=== PATIENT | male | born 1955 | race Hispanic/Latino ===

== ENCOUNTER 2023-08-19 16:16 | Inpatient (IN) | payer OTHER ==
[2023-08-19] MEDS ORDERED: CEFTRIAXONE 1000 MG/VIAL ONE (16:48)
[2023-08-19] MEDS ORDERED: NA CHLORIDE 0.9% 1,000 ML ONE ×2 (16:48→21:13)
[2023-08-19] MEDS ORDERED: ACETAMINOPHEN 325 MG TABLET ONE (16:48)
[2023-08-19] MEDS ORDERED: NA CHLORIDE 0.9% 500 ML ONE ×2 (16:49→18:52)
[2023-08-19] MEDS ORDERED: NA CHLORIDE 0.9% 50 ML ONE (16:49)
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
[2023-08-19 17:40] LABS: Protime INR 1.58
[2023-08-19] MEDS ORDERED: AMOX/K CLAV 875 MG TAB ONE (17:40)
[2023-08-19 17:42] LABS: Absolute Lymphocytes (CBC) 0.4 K/uL (0.7-4.9); Basophils % 0.4 % (0-1.3); Hematocrit 37.6 % (39.6-49.0); Lymphocytes % 5.1 % (15.3-44.8); MCV 89.6 fL (80-100); MPV 10.8 fL (7.6-11.3); Platelets 87 thou/uL (152-406)
[2023-08-19 17:58] LABS: Albumin 2.7 g/dL (3.4-5.0); Albumin/Globulin Ratio 0.6 (1.1-1.8); Anion Gap 13.8 mEq/L (5.0-15.0); Bilirubin Direct 1.6 mg/dL (0-0.2); Bilirubin Indirect, Calculated 1.7 mg/dL (0.2-0.8); Bilirubin Total 3.3 mg/dL (0.2-1.0); Globulin 4.5 g/dL (2.3-3.5); Magnesium 1.5 mg/dL (1.6-2.4); Potassium 3.8 mEq/L (3.5-5.1); Protein, Total 7.2 g/dL (6.4-8.2)
[2023-08-19 18:01] LABS: SARS-CoV-2 Antigen Rapid Res Negative (Negative)
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
[2023-08-19] MEDS ORDERED: MAGNESIUM SULFATE 1 gm IVPB 1 GM/100 ML BAG IV ONE (18:52)
[2023-08-19] MEDS ORDERED: LACTULOSE 20 GM/30 ML UCUP ONE (18:52)
[2023-08-19] MEDS ORDERED: ACETAMINOPHEN 500 MG TAB PO PRN (21:29)
[2023-08-19] MEDS ORDERED: ONDANSETRON 4 MG/2 ML VIAL IV PRN (21:29)
--- NOTE | 2023-08-19 21:29 | P.HP ---
Patient History Date of Service: 08/19/23 Allergies No Known Allergies Allergy (Unverified 08/19/23 20:11) Physical Examination - Studies Laboratory Data (last 24 hrs) 08/19/23 08/19/23 08/19/23 17:10 17:10 17:10 WBC 8.60 Hgb 13.4 L Hct 37.6 L Plt Count 87 L PT 17.1 H INR 1.58 Sodium 129 L Potassium 3.8 BUN 14 Creatinine 1.50 H Glucose 216 H Magnesium 1.5 L Total Bilirubin 3.3 H AST 53 H ALT 38 Alkaline Phosphatase 178 H Lipase 46 Microbiology Data (last 24 hrs): 08/19/23 17:15 Nasopharnyx Influenza Type A Antigen Screen - Final 08/19/23 17:15 Nasopharnyx Influenza Type B Antigen Screen - Final Assessment and Plan - Advance Directives Does patient have a Living Will: No Does patient have a Durable POA for Healthcare: No
[2023-08-19 21:34] LABS: Band Neutrophils 11 % (0-1); Blood Morphology Comment NOT SEEN (NOT SEEN); Platelet Estimate DECR
[2023-08-19] MEDS ORDERED: ACETAMINOPHEN 500 MG TAB ONE (22:00)
[2023-08-19] MEDS: NA CHLORIDE 0.9% 1,000 ML IV SCH (22:00)
[2023-08-19 22:08] LABS: Absolute Lymphocytes (CBC) 0.6 K/uL (0.7-4.9); Basophils % 0.4 % (0-1.3); Hematocrit 41.1 % (39.6-49.0); Lymphocytes % 9.9 % (15.3-44.8); MCV 91.1 fL (80-100); MPV 10.8 fL (7.6-11.3); Platelets 74 thou/uL (152-406); RBC Red Blood Cell Count 4.51 M/uL (4.33-5.43)
[2023-08-19] MEDS: ACETAMINOPHEN 500 MG TAB PO ONE (22:10)
[2023-08-19 22:16] LABS: Calcium Oxalate Crystals- Ur Few /HPF (None Seen); Specific Gravity 1.015 (1.005-1.030); Urine Bacteria None Seen /HPF (<20); Urine Bilirubin NEGATIVE (Negative); Urine Blood Negative (Negative); Urine Clarity Turbid (Clear); Urine Color Yellow (Yellow); Urine Glucose NEGATIVE (Negative); Urine Mucus Slight /HPF (None Seen); Urine Protein NEGATIVE (Negative); Urine RBC None Seen /HPF (None Seen); Urine Urobilinogen 1+ (Normal)
[2023-08-19 22:26] LABS: Albumin 2.7 g/dL (3.4-5.0); Albumin/Globulin Ratio 0.6 (1.1-1.8); Anion Gap 17.7 mEq/L (5.0-15.0); Bilirubin Total 3.2 mg/dL (0.2-1.0); Globulin 4.5 g/dL (2.3-3.5); Potassium 3.7 mEq/L (3.5-5.1); Protein, Total 7.2 g/dL (6.4-8.2)
[2023-08-19 22:45] VITALS: BMI 32.0
[2023-08-20] MEDS ORDERED: PIPER TAZO 3.375 GM in NA CHLORIDE 0.9% 100 ML IV SCH (01:00)
[2023-08-20 01:07] VITALS: O2SAT 98
[2023-08-20 01:40] VITALS: BP 132/45; TEMP 100.8
[2023-08-20] MEDS ORDERED: ACETAMINOPHEN 500 MG TAB PO PRN (04:00)
[2023-08-20] MEDS ORDERED: INSULIN REGULAR (HUMAN) 100 UNIT/ML SQ SCH (07:30)
[2023-08-20] MEDS ORDERED: ENOXAPARIN 40 MG/0.4 ML SQ SCH (09:00)
== END 2023-08-20 01:00 | disposition home or self-care (01) | DRG 864 ==
LOC: ER 16:16 → ERHOLD 21:29
PROVIDERS: ADMIT Internal Medicine Nephrology; ATTEND Internal Medicine
PROC: 0T9B70Z Drainage of Bladder with Drainage Device, Via Natural or Artificial Opening (ICD-10-PCS; principal; 2023-08-19)
DX: R50.9 Fever, unspecified (principal); C22.8 Malignant neoplasm of liver, primary, unspecified as to type; E78.00 Pure hypercholesterolemia, unspecified; E11.9 Type 2 diabetes mellitus without complications; I10 Essential (primary) hypertension; E83.42 Hypomagnesemia; K21.9 Gastro-esophageal reflux disease without esophagitis; F17.210 Nicotine dependence, cigarettes, uncomplicated; R53.1 Weakness; Z11.52 Encounter for screening for COVID-19; V49.49XA Driver injured in collision with other motor vehicles in traffic accident, initial encounter; Y93.9 Activity, unspecified; Y92.9 Unspecified place or not applicable; Y99.9 Unspecified external cause status
CPT/HCPCS: 36415; 70450; 71250; 72125; 80048; 80053; 80076; 81001; 82140; 83605; 83690; 83735; 83880; 84484; 85025; 85610; 87040; 87077; 87186; 87205; 87804; 87811; 96361; 96365; 96375; 99285; J0696; J3475; J7030; J7040